=== PATIENT | male | born 1965 | race Two or more races ===

== ENCOUNTER 2021-11-22 | Inpatient (IN) | payer MEDICARE, MEDICAID ==
[~2021-11-22] VITALS: Ht 167.6 cm; Wt 69.9 kg
[2021-11-22] VITALS (12 sets, daily range): BP systolic 103–159; BP diastolic 56–90
[2021-11-22] MEDS: BACLOFEN 10MG TABLET PO SCH ×2 (10:15→22:01)
[2021-11-22] MEDS ORDERED: NALOXONE HCL 0.4 MG/ML 1ML VIAL IV PRN (10:30)
[2021-11-22] MEDS ORDERED: NON FORMULARY PATIENT HOME MED PO PRN (11:00)
[2021-11-22] MEDS ORDERED: NALOXONE HCL 0.4MG/ML VIAL IV PRN (11:00)
[2021-11-22] MEDS: ENOXAPARIN 40MG/0.4ML SYR SUBCUT SCH (11:34)
[2021-11-22] MEDS: SERTRALINE HCL 50MG TABLET PO SCH (11:34)
[2021-11-22] MEDS: LEVOFLOXACIN 500MG TABLET PO SCH (11:34)
[2021-11-22] MEDS: LABETALOL HCL 200MG TABLET PO SCH ×2 (11:36→22:03)
[2021-11-22] MEDS: FAMOTIDINE 20MG TABLET PO SCH (11:36)
[2021-11-22] MEDS: AMLODIPINE 10MG TABLET PO SCH (11:36)
[2021-11-22] MEDS: SODIUM CHLORIDE 0.9% 1,000 ML IV SCH (11:39)
[2021-11-22] MEDS: GABAPENTIN 400MG CAPSULE PO SCH ×2 (13:00→17:42)
[2021-11-22] MEDS: SODIUM CHLORIDE 0.9% INJ 3ML FLUSH IVF SCH ×2 (13:01→22:01)
[2021-11-22] MEDS: MUPIROCIN 2% OINT 15GM NS SCH ×2 (13:01→22:01)
[2021-11-22] MEDS: ACETAMINOPHEN 650MG SUPP PR PRN (15:37)
[2021-11-22] MEDS: CEFEPIME 1,000 MG in DEXTROSE 5% WATER 50 ML IV SCH (15:51)
[2021-11-22 16:40] LABS: HEMATOCRIT. 33.4 % (42.0-52.0); HEMOGLOBIN. 11.6 g/dL (14.0-18.0); MEAN CORPUSCULAR HEMOGLOBIN 30.9 pg (28.0-32.0); MEAN CORPUSCULAR VOLUME 88.6 fL (80.0-94.0); MEAN PLATELET VOLUME 9.9 fl (7.4-10.4); PLATELET 105 x1000/uL (130-400); RED BLOOD CELL COUNT 3.77 mill/uL (4.7-6.1); RED CELL DISTRIBUTION WIDTH 13.1 % (11.6-14.6)
[2021-11-22 17:01] LABS: CHLORIDE 105 mEq/L (98-107)
[2021-11-22 17:04] LABS: INR 1.2; PROTHROMBIN TIME 12.4 sec (9.6-11.0)
[2021-11-22 18:55] LABS: PLATELET ESTIMATE DECREASED
[2021-11-22] MEDS: ATORVASTATIN CALCIUM 40MG TABLET PO SCH (22:01)
[2021-11-23] VITALS (13 sets, daily range): BP systolic 90–146; BP diastolic 50–83
[2021-11-23] MEDS: SODIUM CHLORIDE 0.9% 1,000 ML IV SCH ×2 (00:40→18:15)
[2021-11-23] MEDS: CEFEPIME 1,000 MG in DEXTROSE 5% WATER 50 ML IV SCH (05:26)
[2021-11-23] MEDS: SODIUM CHLORIDE 0.9% INJ 3ML FLUSH IVF SCH ×3 (05:26→20:49)
[2021-11-23 06:14] LABS: CHLORIDE 103 mEq/L (98-107)
[2021-11-23 06:19] LABS: HEMOGLOBIN. 11.9 g/dL (14.0-18.0); MEAN CORPUSCULAR HEMOGLOBIN 31.1 pg (28.0-32.0); MEAN CORPUSCULAR VOLUME 89.2 fL (80.0-94.0); MEAN PLATELET VOLUME 10.8 fl (7.4-10.4); PLATELET 96 x1000/uL (130-400); RED BLOOD CELL COUNT 3.82 mill/uL (4.7-6.1); RED CELL DISTRIBUTION WIDTH 13.4 % (11.6-14.6)
[2021-11-23] MEDS ORDERED: POTASSIUM CHLORIDE 20MEQ TABLET SR PO NR (07:45)
[2021-11-23] MEDS: BACLOFEN 10MG TABLET PO SCH ×2 (10:06→20:50)
[2021-11-23] MEDS: LEVOFLOXACIN 500MG TABLET PO SCH (10:06)
[2021-11-23] MEDS: FAMOTIDINE 20MG TABLET PO SCH (10:06)
[2021-11-23] MEDS: SERTRALINE HCL 50MG TABLET PO SCH (10:07)
[2021-11-23] MEDS: LABETALOL HCL 200MG TABLET PO SCH ×2 (10:07→20:49)
[2021-11-23] MEDS: AMLODIPINE 10MG TABLET PO SCH (10:07)
[2021-11-23] MEDS: GABAPENTIN 400MG CAPSULE PO SCH ×3 (10:08→18:15)
[2021-11-23] MEDS: ENOXAPARIN 40MG/0.4ML SYR SUBCUT SCH (10:09)
[2021-11-23] MEDS: MUPIROCIN 2% OINT 15GM NS SCH ×2 (10:10→20:48)
[2021-11-23 13:43] LABS: NUCLEATED RED BLOOD CELLS 1 /100 WBC; PLATELET ESTIMATE DECREASED
[2021-11-23] MEDS: ACETAMINOPHEN 650MG SUPP PR PRN (13:46)
[2021-11-23] MEDS: ATORVASTATIN CALCIUM 40MG TABLET PO SCH (20:48)
[2021-11-24] VITALS (10 sets, daily range): BP systolic 116–140; BP diastolic 65–81
[2021-11-24] MEDS: SODIUM CHLORIDE 0.9% 1,000 ML IV SCH ×2 (02:46→16:15)
[2021-11-24] MEDS: SODIUM CHLORIDE 0.9% INJ 3ML FLUSH IVF SCH ×3 (05:11→21:11)
[2021-11-24 06:05] LABS: CHLORIDE 106 mEq/L (98-107)
[2021-11-24 06:16] LABS: HEMATOCRIT. 34.4 % (42.0-52.0); HEMOGLOBIN. 11.6 g/dL (14.0-18.0); MEAN CORPUSCULAR VOLUME 91.7 fL (80.0-94.0); MEAN PLATELET VOLUME 10.5 fl (7.4-10.4); PHOSPHORUS 2.3 mg/dL (2.5-4.9); PLATELET 89 x1000/uL (130-400); RED BLOOD CELL COUNT 3.75 mill/uL (4.7-6.1); RED CELL DISTRIBUTION WIDTH 13.2 % (11.6-14.6)
[2021-11-24] MEDS ORDERED: POTASSIUM PHOS,M-BASIC-D-BASIC 20 MMOL in DEXT 5% WATER 243.3333 ML IV NR (08:00)
[2021-11-24] MEDS: MUPIROCIN 2% OINT 15GM NS SCH ×2 (09:00→21:11)
[2021-11-24] MEDS: ENOXAPARIN 40MG/0.4ML SYR SUBCUT SCH (09:00)
[2021-11-24] MEDS: LABETALOL HCL 200MG TABLET PO SCH ×2 (09:26→21:09)
[2021-11-24] MEDS: AMLODIPINE 10MG TABLET PO SCH (09:27)
[2021-11-24] MEDS: SERTRALINE HCL 50MG TABLET PO SCH (09:27)
[2021-11-24] MEDS: FAMOTIDINE 20MG TABLET PO SCH (09:27)
[2021-11-24] MEDS: GABAPENTIN 400MG CAPSULE PO SCH ×3 (09:27→17:23)
[2021-11-24] MEDS: BACLOFEN 10MG TABLET PO SCH ×2 (09:27→21:10)
[2021-11-24 11:28] LABS: PLATELET ESTIMATE DECREASED
[2021-11-24] MEDS: LEVOFLOXACIN 500MG TABLET PO SCH (13:03)
[2021-11-24] MEDS: ATORVASTATIN CALCIUM 40MG TABLET PO SCH (21:10)
[2021-11-25] VITALS (13 sets, daily range): BP systolic 113–179; BP diastolic 53–94
[2021-11-25] MEDS: SODIUM CHLORIDE 0.9% 1,000 ML IV SCH ×2 (04:04→17:46)
[2021-11-25] MEDS: SODIUM CHLORIDE 0.9% INJ 3ML FLUSH IVF SCH ×3 (06:00→22:00)
[2021-11-25 06:45] LABS: CHLORIDE 107 mEq/L (98-107)
[2021-11-25 06:46] LABS: HEMATOCRIT. 32.1 % (42.0-52.0); HEMOGLOBIN. 10.9 g/dL (14.0-18.0); MEAN CORPUSCULAR HEMOGLOBIN 30.8 pg (28.0-32.0); MEAN CORPUSCULAR VOLUME 90.3 fL (80.0-94.0); MEAN PLATELET VOLUME 9.9 fl (7.4-10.4); PLATELET 77 x1000/uL (130-400); RED BLOOD CELL COUNT 3.55 mill/uL (4.7-6.1)
[2021-11-25 06:55] LABS: PHOSPHORUS 2.2 mg/dL (2.5-4.9)
[2021-11-25] MEDS: BACLOFEN 10MG TABLET PO SCH ×2 (08:36→20:42)
[2021-11-25] MEDS: AMLODIPINE 10MG TABLET PO SCH (08:36)
[2021-11-25] MEDS: GABAPENTIN 400MG CAPSULE PO SCH ×3 (08:36→16:15)
[2021-11-25] MEDS: SERTRALINE HCL 50MG TABLET PO SCH (08:36)
[2021-11-25] MEDS: MUPIROCIN 2% OINT 15GM NS SCH ×2 (08:36→20:41)
[2021-11-25] MEDS: LABETALOL HCL 200MG TABLET PO SCH ×2 (08:36→20:42)
[2021-11-25] MEDS: FAMOTIDINE 20MG TABLET PO SCH (08:37)
[2021-11-25 08:45] LABS: ATYPICAL LYMPHOCYTES 1; PLATELET ESTIMATE DECREASED
[2021-11-25] MEDS: ENOXAPARIN 40MG/0.4ML SYR SUBCUT SCH (09:00)
[2021-11-25] MEDS: HYDROCODONE/APAP 7.5/325MG 1 TAB TABLET PO PRN ×2 (09:18→17:46)
[2021-11-25] MEDS: POTASSIUM PHOS,M-BASIC-D-BASIC 20 MMOL in DEXT 5% WATER 243.3333 ML IV SCH ×2 (09:58→16:15)
[2021-11-25] MEDS: LEVOFLOXACIN 500MG TABLET PO SCH (10:00)
[2021-11-25 20:04] LABS: PHOSPHORUS 3.3 mg/dL (2.5-4.9)
[2021-11-25] MEDS: ATORVASTATIN CALCIUM 40MG TABLET PO SCH (20:42)
[2021-11-26] VITALS (13 sets, daily range): BP systolic 103–150; BP diastolic 57–89
[2021-11-26] MEDS: MELATONIN 3MG TABLET PO PRN (00:10)
[2021-11-26] MEDS: HYDROCODONE/APAP 7.5/325MG 1 TAB TABLET PO PRN ×2 (02:15→21:32)
[2021-11-26] MEDS: SODIUM CHLORIDE 0.9% INJ 3ML FLUSH IVF SCH ×3 (06:00→22:02)
[2021-11-26 06:12] LABS: CHLORIDE 107 mEq/L (98-107)
[2021-11-26 06:22] LABS: HEMATOCRIT. 33.6 % (42.0-52.0); HEMOGLOBIN. 11.5 g/dL (14.0-18.0); MEAN CORPUSCULAR HEMOGLOBIN 30.9 pg (28.0-32.0); MEAN CORPUSCULAR VOLUME 90.3 fL (80.0-94.0); MEAN PLATELET VOLUME 10.2 fl (7.4-10.4); PLATELET 93 x1000/uL (130-400); RED BLOOD CELL COUNT 3.72 mill/uL (4.7-6.1); RED CELL DISTRIBUTION WIDTH 13.2 % (11.6-14.6)
[2021-11-26] MEDS: LABETALOL HCL 200MG TABLET PO SCH ×2 (08:02→20:30)
[2021-11-26] MEDS: BACLOFEN 10MG TABLET PO SCH ×2 (08:02→20:30)
[2021-11-26] MEDS: GABAPENTIN 400MG CAPSULE PO SCH ×3 (08:02→17:08)
[2021-11-26] MEDS: SERTRALINE HCL 50MG TABLET PO SCH (08:02)
[2021-11-26] MEDS: AMLODIPINE 10MG TABLET PO SCH (08:02)
[2021-11-26] MEDS: FAMOTIDINE 20MG TABLET PO SCH (08:02)
[2021-11-26] MEDS: MUPIROCIN 2% OINT 15GM NS SCH ×2 (08:13→20:51)
[2021-11-26] MEDS: SODIUM CHLORIDE 0.9% 1,000 ML IV SCH ×2 (08:14→20:37)
[2021-11-26] MEDS: ENOXAPARIN 40MG/0.4ML SYR SUBCUT SCH (08:14)
[2021-11-26] MEDS ORDERED: POTASSIUM PHOS,M-BASIC-D-BASIC 20 MMOL in DEXT 5% WATER 250 ML IV SCH (09:00)
[2021-11-26 09:17] LABS: PLATELET ESTIMATE SLIGHTLY DECREASED
[2021-11-26] MEDS: CLONIDINE HCL 0.2MG/24HR PATCH TD SCH (09:59)
[2021-11-26] MEDS: LEVOFLOXACIN 500MG TABLET PO SCH (10:07)
[2021-11-26] MEDS: ATORVASTATIN CALCIUM 40MG TABLET PO SCH (20:29)
[2021-11-27] VITALS (9 sets, daily range): BP systolic 108–139; BP diastolic 64–74
[2021-11-27] MEDS: MELATONIN 3MG TABLET PO PRN (00:21)
[2021-11-27] MEDS: SODIUM CHLORIDE 0.9% INJ 3ML FLUSH IVF SCH ×2 (06:26→13:50)
[2021-11-27 07:13] LABS: HEMATOCRIT. 32.4 % (42.0-52.0); HEMOGLOBIN. 11.1 g/dL (14.0-18.0); MEAN CORPUSCULAR HEMOGLOBIN 30.6 pg (28.0-32.0); MEAN CORPUSCULAR VOLUME 89.5 fL (80.0-94.0); PLATELET 111 x1000/uL (130-400); RED BLOOD CELL COUNT 3.62 mill/uL (4.7-6.1); RED CELL DISTRIBUTION WIDTH 12.9 % (11.6-14.6)
[2021-11-27 07:24] LABS: CHLORIDE 108 mEq/L (98-107)
[2021-11-27] MEDS: SERTRALINE HCL 50MG TABLET PO SCH (09:22)
[2021-11-27] MEDS: BACLOFEN 10MG TABLET PO SCH (09:23)
[2021-11-27] MEDS: FAMOTIDINE 20MG TABLET PO SCH (09:23)
[2021-11-27] MEDS: LABETALOL HCL 200MG TABLET PO SCH (09:23)
[2021-11-27] MEDS: AMLODIPINE 10MG TABLET PO SCH (09:23)
[2021-11-27] MEDS: MUPIROCIN 2% OINT 15GM NS SCH (09:24)
[2021-11-27] MEDS: ENOXAPARIN 40MG/0.4ML SYR SUBCUT SCH (09:25)
[2021-11-27] MEDS: GABAPENTIN 400MG CAPSULE PO SCH ×3 (09:26→15:25)
[2021-11-27 10:52] LABS: PLATELET ESTIMATE SLIGHTLY DECREASED
[2021-11-27] MEDS: LEVOFLOXACIN 500MG TABLET PO SCH (11:39)
[2021-11-27] MEDS: SODIUM CHLORIDE 0.9% 1,000 ML IV SCH (11:40)
[2021-11-27] MEDS ORDERED: NALOXONE HCL 0.4MG/ML VIAL IV PRN (14:00)
[2021-11-27] MEDS: HYDROCODONE/APAP 7.5/325MG 1 TAB TABLET PO PRN (15:23)
[2021-11-28] VITALS (8 sets, daily range): BP systolic 123–154; BP diastolic 62–93
[2021-11-28] MEDS: SODIUM CHLORIDE 0.9% 1,000 ML IV SCH (05:15)
[2021-11-28] MEDS: SODIUM CHLORIDE 0.9% INJ 3ML FLUSH IVF SCH ×3 (05:27→21:21)
[2021-11-28 08:13] LABS: HEMATOCRIT. 31.7 % (42.0-52.0); HEMOGLOBIN. 10.9 g/dL (14.0-18.0); MEAN CORPUSCULAR HEMOGLOBIN 30.7 pg (28.0-32.0); MEAN CORPUSCULAR VOLUME 89.5 fL (80.0-94.0); MEAN PLATELET VOLUME 10.3 fl (7.4-10.4); PLATELET 162 x1000/uL (130-400); RED BLOOD CELL COUNT 3.55 mill/uL (4.7-6.1); RED CELL DISTRIBUTION WIDTH 13.2 % (11.6-14.6)
[2021-11-28 08:29] LABS: CHLORIDE 108 mEq/L (98-107)
[2021-11-28] MEDS: LABETALOL HCL 200MG TABLET PO SCH ×3 (09:00→21:20)
[2021-11-28] MEDS: SERTRALINE HCL 50MG TABLET PO SCH (09:00)
[2021-11-28] MEDS: BACLOFEN 10MG TABLET PO SCH ×3 (09:00→21:19)
[2021-11-28] MEDS: AMLODIPINE 10MG TABLET PO SCH (09:01)
[2021-11-28] MEDS: GABAPENTIN 400MG CAPSULE PO SCH ×3 (09:02→16:35)
[2021-11-28] MEDS: PANTOPRAZOLE 40MG DR TABLET PO SCH (09:02)
[2021-11-28] MEDS: ENOXAPARIN 40MG/0.4ML SYR SUBCUT SCH (09:04)
[2021-11-28] MEDS: LEVOFLOXACIN 500MG TABLET PO SCH (10:22)
[2021-11-28 12:03] LABS: PLATELET ESTIMATE NORMAL
[2021-11-28] MEDS: HYDROCODONE/APAP 7.5/325MG 1 TAB TABLET PO PRN ×2 (12:14→21:20)
[2021-11-28] MEDS ORDERED: POTASSIUM CHLORIDE 20MEQ/PACKET PO NR (12:45)
[2021-11-28] MEDS: DOCUSATE SODIUM SUGAR FREE 100MG/10ML UDC NG SCH (21:19)
[2021-11-28] MEDS: ATORVASTATIN CALCIUM 40MG TABLET PO SCH (21:19)
[2021-11-28] MEDS: THIAMINE HCL 100MG TABLET PO SCH (21:20)
[2021-11-29] VITALS (7 sets, daily range): BP systolic 108–161; BP diastolic 64–96
[2021-11-29] MEDS: MELATONIN 3MG TABLET PO PRN (00:23)
[2021-11-29] MEDS: SODIUM CHLORIDE 0.9% 1,000 ML IV SCH ×2 (00:25→21:20)
[2021-11-29] MEDS: SODIUM CHLORIDE 0.9% INJ 3ML FLUSH IVF SCH ×3 (06:21→21:23)
[2021-11-29] MEDS: LABETALOL HCL 200MG TABLET PO SCH ×2 (08:11→21:22)
[2021-11-29] MEDS: GABAPENTIN 400MG CAPSULE PO SCH ×3 (08:11→16:03)
[2021-11-29] MEDS: AMLODIPINE 10MG TABLET PO SCH (08:11)
[2021-11-29] MEDS: BACLOFEN 10MG TABLET PO SCH ×2 (08:11→21:20)
[2021-11-29] MEDS: PANTOPRAZOLE 40MG DR TABLET PO SCH (08:11)
[2021-11-29] MEDS: SERTRALINE HCL 50MG TABLET PO SCH (08:12)
[2021-11-29] MEDS: ENOXAPARIN 40MG/0.4ML SYR SUBCUT SCH (08:12)
[2021-11-29] MEDS: LEVOFLOXACIN 500MG TABLET PO SCH (10:19)
[2021-11-29] MEDS: HYDROCODONE/APAP 7.5/325MG 1 TAB TABLET PO PRN ×2 (10:22→16:02)
[2021-11-29] MEDS: ATORVASTATIN CALCIUM 40MG TABLET PO SCH (21:20)
[2021-11-29] MEDS: DOCUSATE SODIUM SUGAR FREE 100MG/10ML UDC NG SCH (21:20)
[2021-11-29] MEDS: THIAMINE HCL 100MG TABLET PO SCH (21:21)
[2021-11-30] VITALS: BP 127/67
[2021-11-30 04:00] VITALS: BP 156/90
[2021-11-30 05:37] LABS: BASOPHILS % 0.1 % (0.0-2.0); EOSINOPHILS % 0.2 % (0.0-5.0); HEMATOCRIT. 30.8 % (42.0-52.0); HEMOGLOBIN. 10.2 g/dL (14.0-18.0); LYMPHOCYTES % 7.9 % (20.0-50.0); MEAN CORPUSCULAR HEMOGLOBIN 30.7 pg (28.0-32.0); MEAN CORPUSCULAR VOLUME 92.2 fL (80.0-94.0); MEAN PLATELET VOLUME 9.6 fl (7.4-10.4); NEUTROPHILS % 85.8 % (40.0-76.0); PLATELET 252 x1000/uL (130-400); RED BLOOD CELL COUNT 3.34 mill/uL (4.7-6.1); RED CELL DISTRIBUTION WIDTH 13.8 % (11.6-14.6)
[2021-11-30 05:47] LABS: CHLORIDE 111 mEq/L (98-107)
[2021-11-30] MEDS: SODIUM CHLORIDE 0.9% INJ 3ML FLUSH IVF SCH ×2 (06:19→21:25)
[2021-11-30 08:00] VITALS: BP 174/86
[2021-11-30] MEDS: ENOXAPARIN 40MG/0.4ML SYR SUBCUT SCH (08:51)
[2021-11-30] MEDS: AMLODIPINE 10MG TABLET PO SCH (08:52)
[2021-11-30] MEDS: LABETALOL HCL 200MG TABLET PO SCH ×2 (08:52→21:23)
[2021-11-30] MEDS: PANTOPRAZOLE 40MG DR TABLET PO SCH (08:52)
[2021-11-30] MEDS: GABAPENTIN 400MG CAPSULE PO SCH ×3 (08:52→16:36)
[2021-11-30] MEDS: BACLOFEN 10MG TABLET PO SCH ×2 (08:52→21:23)
[2021-11-30] MEDS: SERTRALINE HCL 50MG TABLET PO SCH (08:52)
[2021-11-30] MEDS: LEVOFLOXACIN 500MG TABLET PO SCH (11:59)
[2021-11-30 12:00] VITALS: BP 153/78
[2021-11-30] MEDS: HYDROCODONE/APAP 7.5/325MG 1 TAB TABLET PO PRN ×2 (14:28→21:24)
[2021-11-30 16:00] VITALS: BP 147/75
[2021-11-30] MEDS: SODIUM CHLORIDE 0.9% 1,000 ML IV SCH (16:36)
[2021-11-30] MEDS: ACETAMINOPHEN 650MG SUPP PR PRN (18:28)
[2021-11-30 20:00] VITALS: BP 151/78
[2021-11-30] MEDS: ATORVASTATIN CALCIUM 40MG TABLET PO SCH (21:22)
[2021-11-30] MEDS: THIAMINE HCL 100MG TABLET PO SCH (21:22)
[2021-11-30] MEDS: DOCUSATE SODIUM SUGAR FREE 100MG/10ML UDC NG SCH (21:22)
[2021-11-30] MEDS: MELATONIN 3MG TABLET PO PRN (21:23)
[2021-12-01] VITALS: BP 129/62
[2021-12-01 04:00] VITALS: BP 119/68
[2021-12-01] MEDS: SODIUM CHLORIDE 0.9% INJ 3ML FLUSH IVF SCH ×3 (06:40→21:58)
[2021-12-01 06:43] LABS: BASOPHILS % 0.4 % (0.0-2.0); EOSINOPHILS % 0.8 % (0.0-5.0); HEMATOCRIT. 33.1 % (42.0-52.0); LYMPHOCYTES % 9.6 % (20.0-50.0); MEAN CORPUSCULAR HEMOGLOBIN 30.8 pg (28.0-32.0); MEAN CORPUSCULAR VOLUME 92.3 fL (80.0-94.0); MEAN PLATELET VOLUME 9.2 fl (7.4-10.4); NEUTROPHILS % 83.2 % (40.0-76.0); PLATELET 300 x1000/uL (130-400); RED BLOOD CELL COUNT 3.58 mill/uL (4.7-6.1); RED CELL DISTRIBUTION WIDTH 13.6 % (11.6-14.6)
[2021-12-01 07:02] LABS: CHLORIDE 108 mEq/L (98-107)
[2021-12-01 08:00] VITALS: BP 107/58
[2021-12-01] MEDS: SERTRALINE HCL 50MG TABLET PO SCH (09:21)
[2021-12-01] MEDS: LABETALOL HCL 200MG TABLET PO SCH ×2 (09:21→21:57)
[2021-12-01] MEDS: GABAPENTIN 400MG CAPSULE PO SCH ×3 (09:21→17:00)
[2021-12-01] MEDS: PANTOPRAZOLE 40MG DR TABLET PO SCH (09:21)
[2021-12-01] MEDS: AMLODIPINE 10MG TABLET PO SCH (09:22)
[2021-12-01] MEDS: ENOXAPARIN 40MG/0.4ML SYR SUBCUT SCH (09:22)
[2021-12-01] MEDS: BACLOFEN 10MG TABLET PO SCH ×2 (09:22→21:59)
[2021-12-01 12:00] VITALS: BP 150/76
[2021-12-01] MEDS: LEVOFLOXACIN 500MG TABLET PO SCH (12:31)
[2021-12-01] MEDS: SODIUM CHLORIDE 0.9% 1,000 ML IV SCH (12:32)
[2021-12-01] MEDS: ATORVASTATIN CALCIUM 40MG TABLET PO SCH (21:57)
[2021-12-01] MEDS: MELATONIN 3MG TABLET PO PRN (21:57)
[2021-12-01] MEDS: DOCUSATE SODIUM SUGAR FREE 100MG/10ML UDC NG SCH (21:57)
[2021-12-01] MEDS: THIAMINE HCL 100MG TABLET PO SCH (21:58)
[2021-12-01] MEDS: HYDROCODONE/APAP 7.5/325MG 1 TAB TABLET PO PRN (21:58)
[2021-12-02] VITALS: BP 115/60
[2021-12-02 04:00] VITALS: BP 107/63
[2021-12-02] MEDS: SODIUM CHLORIDE 0.9% INJ 3ML FLUSH IVF SCH ×3 (06:20→21:06)
[2021-12-02 06:26] LABS: PROTHROMBIN TIME 10.7 sec (9.6-11.0)
[2021-12-02 06:27] LABS: CHLORIDE 106 mEq/L (98-107)
[2021-12-02 06:37] LABS: BASOPHILS % 0.2 % (0.0-2.0); EOSINOPHILS % 0.9 % (0.0-5.0); HEMATOCRIT. 32.5 % (42.0-52.0); HEMOGLOBIN. 10.9 g/dL (14.0-18.0); LYMPHOCYTES % 10.3 % (20.0-50.0); MEAN CORPUSCULAR HEMOGLOBIN 30.6 pg (28.0-32.0); MEAN CORPUSCULAR VOLUME 91.4 fL (80.0-94.0); MEAN PLATELET VOLUME 9.4 fl (7.4-10.4); MONOCYTES % 5.7 % (2.0-8.0); NEUTROPHILS % 82.9 % (40.0-76.0); PLATELET 331 x1000/uL (130-400); RED BLOOD CELL COUNT 3.55 mill/uL (4.7-6.1); RED CELL DISTRIBUTION WIDTH 13.6 % (11.6-14.6)
[2021-12-02 08:00] VITALS: BP 162/105
[2021-12-02] MEDS: SERTRALINE HCL 50MG TABLET PO SCH (08:15)
[2021-12-02] MEDS: BACLOFEN 10MG TABLET PO SCH ×2 (08:15→21:01)
[2021-12-02] MEDS: LABETALOL HCL 200MG TABLET PO SCH ×2 (08:16→21:01)
[2021-12-02] MEDS: PANTOPRAZOLE 40MG DR TABLET PO SCH (08:16)
[2021-12-02] MEDS: AMLODIPINE 10MG TABLET PO SCH (08:16)
[2021-12-02] MEDS: SODIUM CHLORIDE 0.9% 1,000 ML IV SCH (08:34)
[2021-12-02] MEDS: GABAPENTIN 400MG CAPSULE PO SCH ×3 (09:00→21:01)
[2021-12-02] MEDS: LEVOFLOXACIN 500MG TABLET PO SCH (09:52)
[2021-12-02 12:00] VITALS: BP 131/83
[2021-12-02] MEDS ORDERED: CEFAZOLIN SODIUM 1000MG/VIAL ONE (15:58)
[2021-12-02] MEDS ORDERED: ONDANSETRON HCL 4MG/2ML INJ ONE (16:02)
[2021-12-02] MEDS ORDERED: DEXAMETHASONE 4MG/ML 1ML VIAL ONE (16:02)
[2021-12-02] MEDS ORDERED: PROPOFOL 200MG/20ML VIAL IV ONE ×2 (16:02→16:23)
[2021-12-02] MEDS ORDERED: MIDAZOLAM HCL 2 MG/2 ML VIAL ONE (16:03)
[2021-12-02 20:00] VITALS: BP 162/99
[2021-12-02] MEDS: DOCUSATE SODIUM SUGAR FREE 100MG/10ML UDC NG SCH (21:00)
[2021-12-02] MEDS: ATORVASTATIN CALCIUM 40MG TABLET PO SCH (21:01)
[2021-12-02] MEDS: THIAMINE HCL 100MG TABLET PO SCH (21:05)
[2021-12-03] VITALS: BP 147/86
[2021-12-03 04:00] VITALS: BP 121/79
[2021-12-03] MEDS: PANTOPRAZOLE 40MG DR TABLET PO SCH (06:27)
[2021-12-03] MEDS: SODIUM CHLORIDE 0.9% INJ 3ML FLUSH IVF SCH ×3 (06:29→21:07)
[2021-12-03] MEDS: SODIUM CHLORIDE 0.9% 1,000 ML IV SCH (06:37)
[2021-12-03 07:32] LABS: BASOPHILS % 0.3 % (0.0-2.0); EOSINOPHILS % 0.2 % (0.0-5.0); HEMATOCRIT. 31.9 % (42.0-52.0); HEMOGLOBIN. 10.8 g/dL (14.0-18.0); LYMPHOCYTES % 9.6 % (20.0-50.0); MEAN CORPUSCULAR HEMOGLOBIN 31.1 pg (28.0-32.0); MEAN CORPUSCULAR VOLUME 91.7 fL (80.0-94.0); MEAN PLATELET VOLUME 8.9 fl (7.4-10.4); MONOCYTES % 6.1 % (2.0-8.0); NEUTROPHILS % 83.8 % (40.0-76.0); PLATELET 374 x1000/uL (130-400); RED BLOOD CELL COUNT 3.48 mill/uL (4.7-6.1); RED CELL DISTRIBUTION WIDTH 13.4 % (11.6-14.6)
[2021-12-03 08:00] VITALS: BP 165/99
[2021-12-03] MEDS: GABAPENTIN 400MG CAPSULE PO SCH ×3 (08:07→17:01)
[2021-12-03] MEDS: LABETALOL HCL 200MG TABLET PO SCH ×2 (08:07→21:06)
[2021-12-03] MEDS: AMLODIPINE 10MG TABLET PO SCH (08:07)
[2021-12-03] MEDS: BACLOFEN 10MG TABLET PO SCH ×2 (08:08→21:07)
[2021-12-03] MEDS: SERTRALINE HCL 50MG TABLET PO SCH (08:08)
[2021-12-03] MEDS: CLONIDINE HCL 0.2MG/24HR PATCH TD SCH (08:08)
[2021-12-03 08:48] LABS: CHLORIDE 104 mEq/L (98-107)
[2021-12-03] MEDS: LEVOFLOXACIN 500MG TABLET PO SCH (10:31)
[2021-12-03 12:00] VITALS: BP 117/67
[2021-12-03] MEDS ORDERED: LIDOCAINE HCL/EPINEPHRINE 1%-EPI 1:100,000 20 ML VIAL INFIL SCH (12:00)
[2021-12-03] MEDS ORDERED: SILVER NITRATE APPLICATOR STICK TOP SCH (12:00)
[2021-12-03 16:00] VITALS: BP 150/82
[2021-12-03 20:00] VITALS: BP 123/88
[2021-12-03] MEDS: ATORVASTATIN CALCIUM 40MG TABLET PO SCH (21:06)
[2021-12-03] MEDS: THIAMINE HCL 100MG TABLET PO SCH (21:07)
[2021-12-03] MEDS: DOCUSATE SODIUM SUGAR FREE 100MG/10ML UDC NG SCH (21:07)
[2021-12-04] VITALS: BP 113/69
[2021-12-04 04:00] VITALS: BP 144/60
[2021-12-04] MEDS: SODIUM CHLORIDE 0.9% INJ 3ML FLUSH IVF SCH ×2 (06:40→12:41)
[2021-12-04] MEDS: PANTOPRAZOLE 40MG DR TABLET PO SCH (06:40)
[2021-12-04] MEDS: SODIUM CHLORIDE 0.9% 1,000 ML IV SCH ×2 (06:42→22:00)
[2021-12-04 07:09] LABS: CHLORIDE 105 mEq/L (98-107)
[2021-12-04 07:11] LABS: HEMATOCRIT. 29.8 % (42.0-52.0); HEMOGLOBIN. 10.1 g/dL (14.0-18.0); MEAN CORPUSCULAR HEMOGLOBIN 30.9 pg (28.0-32.0); PLATELET 340 x1000/uL (130-400); RED BLOOD CELL COUNT 3.27 mill/uL (4.7-6.1); RED CELL DISTRIBUTION WIDTH 13.7 % (11.6-14.6)
[2021-12-04 08:00] VITALS: BP 151/71
[2021-12-04] MEDS: GABAPENTIN 400MG CAPSULE PO SCH ×3 (08:05→16:51)
[2021-12-04] MEDS: LABETALOL HCL 200MG TABLET PO SCH ×2 (08:06→21:59)
[2021-12-04] MEDS: SERTRALINE HCL 50MG TABLET PO SCH (08:06)
[2021-12-04] MEDS: AMLODIPINE 10MG TABLET PO SCH (08:06)
[2021-12-04] MEDS: BACLOFEN 10MG TABLET PO SCH ×2 (08:07→21:59)
[2021-12-04] MEDS ORDERED: POTASSIUM CHLORIDE 20MEQ TABLET SR PO SCH (10:00)
[2021-12-04] MEDS: LEVOFLOXACIN 500MG TABLET PO SCH (10:27)
[2021-12-04 12:00] VITALS: BP 121/61
[2021-12-04 14:16] LABS: NUCLEATED RED BLOOD CELLS 1 /100 WBC; PLATELET ESTIMATE NORMAL
[2021-12-04 16:00] VITALS: BP 131/64
[2021-12-04 20:00] VITALS: BP 136/59
[2021-12-04] MEDS: ATORVASTATIN CALCIUM 40MG TABLET PO SCH (21:59)
[2021-12-04] MEDS: DOCUSATE SODIUM SUGAR FREE 100MG/10ML UDC NG SCH (21:59)
[2021-12-04] MEDS: THIAMINE HCL 100MG TABLET PO SCH (21:59)
[2021-12-05] VITALS (7 sets, daily range): BP systolic 113–150; BP diastolic 58–77
[2021-12-05] MEDS: PANTOPRAZOLE 40MG DR TABLET PO SCH (05:36)
[2021-12-05] MEDS: SODIUM CHLORIDE 0.9% INJ 3ML FLUSH IVF SCH ×3 (05:36→21:31)
[2021-12-05 07:01] LABS: BASOPHILS % 0.2 % (0.0-2.0); CHLORIDE 104 mEq/L (98-107); EOSINOPHILS % 0.5 % (0.0-5.0); HEMOGLOBIN. 9.5 g/dL (14.0-18.0); LYMPHOCYTES % 8.1 % (20.0-50.0); MEAN CORPUSCULAR HEMOGLOBIN 30.9 pg (28.0-32.0); MEAN CORPUSCULAR VOLUME 90.8 fL (80.0-94.0); MONOCYTES % 8.2 % (2.0-8.0); PLATELET 293 x1000/uL (130-400); RED BLOOD CELL COUNT 3.08 mill/uL (4.7-6.1); RED CELL DISTRIBUTION WIDTH 13.7 % (11.6-14.6)
[2021-12-05] MEDS: AMLODIPINE 10MG TABLET PO SCH (09:23)
[2021-12-05] MEDS: BACLOFEN 10MG TABLET PO SCH ×2 (09:23→21:24)
[2021-12-05] MEDS: SERTRALINE HCL 50MG TABLET PO SCH (09:23)
[2021-12-05] MEDS: LABETALOL HCL 200MG TABLET PO SCH ×2 (09:23→21:24)
[2021-12-05] MEDS: GABAPENTIN 400MG CAPSULE PO SCH ×3 (09:24→17:05)
[2021-12-05] MEDS: LEVOFLOXACIN 500MG TABLET PO SCH (11:52)
[2021-12-05] MEDS: SODIUM CHLORIDE 0.9% 1,000 ML IV SCH (17:05)
[2021-12-05] MEDS ORDERED: DEXTROSE 50% WATER 50ML SYRINGE IV PRN (20:00)
[2021-12-05] MEDS: BLOOD SUGAR DIAGNOSTIC STRIP TEST SCH (20:40)
[2021-12-05] MEDS: ATORVASTATIN CALCIUM 40MG TABLET PO SCH (21:23)
[2021-12-05] MEDS: INSULIN LISPRO 100 UNITS/ML SUBCUT SCH (21:25)
[2021-12-05] MEDS: DOCUSATE SODIUM SUGAR FREE 100MG/10ML UDC NG SCH (21:31)
[2021-12-06 04:00] VITALS: BP 147/90
[2021-12-06] MEDS: SODIUM CHLORIDE 0.9% INJ 3ML FLUSH IVF SCH ×3 (06:12→20:47)
[2021-12-06] MEDS: PANTOPRAZOLE 40MG DR TABLET PO SCH (06:12)
[2021-12-06] MEDS: BLOOD SUGAR DIAGNOSTIC STRIP TEST SCH ×4 (06:15→20:28)
[2021-12-06] MEDS: INSULIN LISPRO 100 UNITS/ML SUBCUT SCH ×4 (06:15→20:46)
[2021-12-06 08:00] VITALS: BP 154/73
[2021-12-06] MEDS: AMLODIPINE 10MG TABLET PO SCH (10:33)
[2021-12-06] MEDS: GABAPENTIN 400MG CAPSULE PO SCH ×3 (10:33→18:25)
[2021-12-06] MEDS: SERTRALINE HCL 50MG TABLET PO SCH (10:33)
[2021-12-06] MEDS: LABETALOL HCL 200MG TABLET PO SCH ×2 (10:34→20:44)
[2021-12-06] MEDS: BACLOFEN 10MG TABLET PO SCH ×2 (10:35→20:44)
[2021-12-06 12:00] VITALS: BP 144/68
[2021-12-06 12:44] LABS: HEMATOCRIT 30.1 % (42.0-52.0); HEMOGLOBIN 10.1 g/dL (14.0-18.0); MEAN CORPUSCULAR VOLUME 92.2 fL (80.0-94.0); PLATELET 301 x1000/uL (130-400); RED BLOOD CELL COUNT 3.27 mill/uL (4.7-6.1); RED CELL DISTRIBUTION WIDTH 13.6 % (11.6-14.6)
[2021-12-06 14:14] LABS: CHLORIDE 104 mEq/L (98-107)
[2021-12-06] MEDS: SODIUM CHLORIDE 0.9% 1,000 ML IV SCH (14:47)
[2021-12-06 16:00] VITALS: BP 140/65
[2021-12-06 20:00] VITALS: BP 137/68
[2021-12-06] MEDS: DOCUSATE SODIUM SUGAR FREE 100MG/10ML UDC NG SCH (20:44)
[2021-12-06] MEDS: ATORVASTATIN CALCIUM 40MG TABLET PO SCH (20:44)
[2021-12-07] VITALS: BP 147/72
[2021-12-07 04:00] VITALS: BP 131/69
[2021-12-07] MEDS: BLOOD SUGAR DIAGNOSTIC STRIP TEST SCH ×4 (06:15→21:30)
[2021-12-07] MEDS: SODIUM CHLORIDE 0.9% INJ 3ML FLUSH IVF SCH ×3 (06:18→22:57)
[2021-12-07] MEDS: LANSOPRAZOLE 30MG DR CAPSULE GT SCH (06:18)
[2021-12-07] MEDS: INSULIN LISPRO 100 UNITS/ML SUBCUT SCH ×4 (06:19→22:55)
[2021-12-07] MEDS: ACETAMINOPHEN 650MG SUPP PR PRN (06:31)
[2021-12-07 06:56] LABS: HEMATOCRIT 31.1 % (42.0-52.0); HEMOGLOBIN 10.8 g/dL (14.0-18.0); MEAN CORPUSCULAR HEMOGLOBIN 31.2 pg (28.0-32.0); MEAN CORPUSCULAR VOLUME 90.1 fL (80.0-94.0); PLATELET 318 x1000/uL (130-400); RED BLOOD CELL COUNT 3.45 mill/uL (4.7-6.1); RED CELL DISTRIBUTION WIDTH 13.7 % (11.6-14.6)
[2021-12-07 08:00] VITALS: BP 160/88
[2021-12-07] MEDS: SODIUM CHLORIDE 0.9% 1,000 ML IV SCH (08:34)
[2021-12-07 08:54] LABS: CHLORIDE 101 mEq/L (98-107)
[2021-12-07] MEDS: SERTRALINE HCL 50MG TABLET PO SCH (10:47)
[2021-12-07] MEDS: GABAPENTIN 400MG CAPSULE PO SCH ×3 (10:47→16:22)
[2021-12-07] MEDS: AMLODIPINE 10MG TABLET PO SCH (10:48)
[2021-12-07] MEDS: LABETALOL HCL 200MG TABLET PO SCH ×2 (10:49→22:49)
[2021-12-07] MEDS: BACLOFEN 10MG TABLET PO SCH ×2 (10:50→22:49)
[2021-12-07 12:00] VITALS: BP 149/86
[2021-12-07 16:00] VITALS: BP 141/81
[2021-12-07 20:00] VITALS: BP 146/88
[2021-12-07] MEDS: ATORVASTATIN CALCIUM 40MG TABLET PO SCH (22:49)
[2021-12-07] MEDS: DOCUSATE SODIUM SUGAR FREE 100MG/10ML UDC NG SCH (22:55)
[2021-12-08] VITALS: BP 139/80
[2021-12-08 04:00] VITALS: BP 103/76
[2021-12-08] MEDS: SODIUM CHLORIDE 0.9% INJ 3ML FLUSH IVF SCH ×3 (06:00→21:30)
[2021-12-08] MEDS: LANSOPRAZOLE 30MG DR CAPSULE GT SCH (06:25)
[2021-12-08] MEDS: SODIUM CHLORIDE 0.9% 1,000 ML IV SCH (06:25)
[2021-12-08] MEDS: BLOOD SUGAR DIAGNOSTIC STRIP TEST SCH ×4 (06:26→21:27)
[2021-12-08] MEDS: INSULIN LISPRO 100 UNITS/ML SUBCUT SCH ×4 (06:26→21:33)
[2021-12-08 08:00] VITALS: BP 140/87
[2021-12-08] MEDS: SERTRALINE HCL 50MG TABLET PO SCH (08:31)
[2021-12-08] MEDS: AMLODIPINE 10MG TABLET PO SCH (08:31)
[2021-12-08] MEDS: LABETALOL HCL 200MG TABLET PO SCH ×2 (08:32→21:31)
[2021-12-08] MEDS: GABAPENTIN 400MG CAPSULE PO SCH ×3 (08:32→18:02)
[2021-12-08] MEDS: BACLOFEN 10MG TABLET PO SCH ×2 (08:32→21:31)
[2021-12-08 12:00] VITALS: BP 144/90
[2021-12-08 16:00] VITALS: BP 139/81
[2021-12-08] MEDS ORDERED: NALOXONE HCL 0.4MG/ML VIAL IV PRN (18:00)
[2021-12-08] MEDS: TRAMADOL 50MG TABLET PO PRN (18:03)
[2021-12-08 20:00] VITALS: BP 145/66
[2021-12-08] MEDS: DOCUSATE SODIUM SUGAR FREE 100MG/10ML UDC NG SCH (21:31)
[2021-12-08] MEDS: ATORVASTATIN CALCIUM 40MG TABLET PO SCH (21:31)
[2021-12-09] VITALS: BP 126/78
[2021-12-09] MEDS: SODIUM CHLORIDE 0.9% 1,000 ML IV SCH (01:49)
[2021-12-09] MEDS: TRAMADOL 50MG TABLET PO PRN ×2 (01:50→13:40)
[2021-12-09 04:00] VITALS: BP 136/81
[2021-12-09] MEDS: SODIUM CHLORIDE 0.9% INJ 3ML FLUSH IVF SCH ×2 (06:39→13:50)
[2021-12-09] MEDS: INSULIN LISPRO 100 UNITS/ML SUBCUT SCH ×3 (06:41→17:40)
[2021-12-09] MEDS: BLOOD SUGAR DIAGNOSTIC STRIP TEST SCH ×3 (06:41→17:10)
[2021-12-09 08:00] VITALS: BP 196/99
[2021-12-09] MEDS ORDERED: FAMOTIDINE 20MG TABLET PO SCH (09:00)
[2021-12-09] MEDS: BACLOFEN 10MG TABLET PO SCH (09:17)
[2021-12-09] MEDS: SERTRALINE HCL 50MG TABLET PO SCH (09:17)
[2021-12-09] MEDS: LABETALOL HCL 200MG TABLET PO SCH (09:17)
[2021-12-09] MEDS: GABAPENTIN 400MG CAPSULE PO SCH ×3 (09:17→17:00)
[2021-12-09] MEDS: AMLODIPINE 10MG TABLET PO SCH (09:17)
[2021-12-09 12:00] VITALS: BP 142/73
[2021-12-09 15:50] LABS: BASOPHILS % 0.5 % (0.0-2.0); EOSINOPHILS % 2.5 % (0.0-5.0); HEMATOCRIT. 30.9 % (42.0-52.0); HEMOGLOBIN. 10.6 g/dL (14.0-18.0); LYMPHOCYTES % 8.1 % (20.0-50.0); MEAN CORPUSCULAR HEMOGLOBIN 30.7 pg (28.0-32.0); MEAN CORPUSCULAR VOLUME 89.1 fL (80.0-94.0); MEAN PLATELET VOLUME 9.1 fl (7.4-10.4); MONOCYTES % 7.3 % (2.0-8.0); NEUTROPHILS % 81.6 % (40.0-76.0); PLATELET 311 x1000/uL (130-400); RED BLOOD CELL COUNT 3.47 mill/uL (4.7-6.1); RED CELL DISTRIBUTION WIDTH 14.2 % (11.6-14.6)
[2021-12-09 16:00] VITALS: BP 148/91
[2021-12-09 16:05] LABS: CHLORIDE 103 mEq/L (98-107)
[2021-12-09 16:48] VITALS: BP 148/91
== END 2021-12-09 18:52 | disposition home health service (06) | DRG 853 ==
LOC: 5EST → 8WST 12-02 10:51
PROVIDERS: ADMIT Hospitalist; ATTEND Hospitalist
PROC: 0KBP0ZZ Excision of Left Hip Muscle, Open Approach (ICD-10-PCS; principal; 2021-11-23)
PROC: 0KBN0ZZ Excision of Right Hip Muscle, Open Approach (ICD-10-PCS; 2021-11-23)
PROC: 0KBP0ZZ Excision of Left Hip Muscle, Open Approach (ICD-10-PCS; 2021-11-27)
PROC: 0KBN0ZZ Excision of Right Hip Muscle, Open Approach (ICD-10-PCS; 2021-11-27)
PROC: 0DH68UZ Insertion of Feeding Device into Stomach, Via Natural or Artificial Opening Endoscopic (ICD-10-PCS; 2021-12-02)
PROC: 0KBP0ZZ Excision of Left Hip Muscle, Open Approach (ICD-10-PCS; 2021-12-04)
PROC: 0KBN0ZZ Excision of Right Hip Muscle, Open Approach (ICD-10-PCS; 2021-12-04)
DX: A41.59 Other Gram-negative sepsis (principal); L89.154 Pressure ulcer of sacral region, stage 4; N39.0 Urinary tract infection, site not specified; E46 Unspecified protein-calorie malnutrition; I69.351 Hemiplegia and hemiparesis following cerebral infarction affecting right dominant side; I69.354 Hemiplegia and hemiparesis following cerebral infarction affecting left non-dominant side; K81.0 Acute cholecystitis; N17.9 Acute kidney failure, unspecified; R13.10 Dysphagia, unspecified; R47.1 Dysarthria and anarthria; K40.90 Unilateral inguinal hernia, without obstruction or gangrene, not specified as recurrent; K44.9 Diaphragmatic hernia without obstruction or gangrene; B95.62 Methicillin resistant Staphylococcus aureus infection as the cause of diseases classified elsewhere; E87.6 Hypokalemia; K59.00 Constipation, unspecified; Z20.822 Contact with and (suspected) exposure to COVID-19; D63.8 Anemia in other chronic diseases classified elsewhere; I10 Essential (primary) hypertension; G47.00 Insomnia, unspecified; K29.70 Gastritis, unspecified, without bleeding; F51.05 Insomnia due to other mental disorder; R13.12 Dysphagia, oropharyngeal phase; R62.7 Adult failure to thrive; K82.8 Other specified diseases of gallbladder; K76.9 Liver disease, unspecified; F32.A Depression, unspecified; R73.9 Hyperglycemia, unspecified; Z79.82 Long term (current) use of aspirin; Z87.440 Personal history of urinary (tract) infections; Z79.02 Long term (current) use of antithrombotics/antiplatelets; Z68.24 Body mass index [BMI] 24.0-24.9, adult; Z74.01 Bed confinement status; Z82.3 Family history of stroke; Z79.899 Other long term (current) drug therapy; Z82.49 Family history of ischemic heart disease and other diseases of the circulatory system
CPT/HCPCS: 36415; 71045; 74176; 76700; 80048; 80053; 80076; 82248; 82962; 83036; 83605; 83735; 84100; 84134; 84145; 85025; 85027; 87426; 92610; 93005; 97110; 97162; 97530; C1893; J0690; J0692; J1100; J1650; J1815; J2250; J2405; J2704; J3490; J7030; J7060